=== PATIENT | male | born 1970 | race Caucasian/White ===

== ENCOUNTER 2018-05-09 16:47 | Emergency (ER) | payer OTHER ==
[~2018-05-09] VITALS: Ht 170.2 cm; Wt 92.5 kg
[2018-05-09] MEDS ORDERED: TESSALON PERLE100 MG PO (16:58)
[2018-05-09] MEDS ORDERED: PROAIR (16:58)
[2018-05-09] MEDS ORDERED: DOXYCYCLINE 10100 MG PO (16:58)
[2018-05-09] MEDS ORDERED: ATORVASTATIN CA40 MG PO (16:59)
[2018-05-09] MEDS ORDERED: LAMICTAL XR200 MG PO (17:00)
[2018-05-09] MEDS ORDERED: XANAX1 MG PO (17:00)
[2018-05-09] MEDS ORDERED: TRAZODONE HCL100 MG PO (17:00)
[2018-05-09] MEDS ORDERED: EFFEXOR XR75 MG PO (17:01)
[2018-05-09] MEDS ORDERED: LITHIUM CARBON300 M3 PO (17:01)
[2018-05-09 17:55] LABS: ABSOLUTE BASOPHILS 0.1 thou/uL (0.0-0.2); ABSOLUTE EOSINOPHILS 0.2 thou/uL (0.0-0.7); ABSOLUTE LYMPHOCYTES 3.8 thou/uL (0.8-5.3); ABSOLUTE MONOCYTES 1.4 thou/uL (0.0-1.2); ABSOLUTE NEUTROPHILS 9.3 thou/uL (1.6-8.1); BASOPHILS 0.8 %; HEMATOCRIT 46.9 % (42.0-52.0); HEMOGLOBIN 15.9 gm/dL (14.0-18.0); LYMPHOCYTES 25.7 %; MCH 31.2 pg (26.0-34.0); MCHC 33.8 g/dL (28.0-37.0); MCV 92.5 fL (80.0-100.0); MONOCYTES 9.2 %; NUCLEATED RBCS 0 /100WBC; PLATELET COUNT* 260 thou/uL (150-400); POLYS 63.3 %; RBC 5.08 mil/uL (4.50-6.00); RDW-CV 13.3 % (10.5-14.5); WBC 14.8 thou/uL (4.0-11.0)
[2018-05-09 18:03] LABS: ANION GAP 11 mmol/L (7-16); BUN 9 mg/dL (7-18); CALCIUM 8.7 mg/dL (8.5-10.1); CHLORIDE 105 mmol/L (98-107); CO2 23 mmol/L (21-32); CREATININE 0.8 mg/dL (0.6-1.3); GLUCOSE 87 mg/dL (70-99); POTASSIUM 4.1 mmol/L (3.5-5.1); SODIUM 139 mmol/L (136-145)
[2018-05-09 18:10] LABS: ALBUMIN 3.3 g/dL (3.4-5.0); ALKALINE PHOSPHATASE 111 U/L (46-116); SGOT 30 U/L (15-37); SGPT 49 U/L (30-65); TOTAL BILIRUBIN 0.3 mg/dL (<0.1-1.0); TOTAL PROTEIN 6.7 g/dL (6.4-8.2); TROPONIN-I LEVEL <0.06 ng/mL (<0.06)
[2018-05-09 18:41] LABS: INFLUENZA A ANTIGEN None Detected (None Detect); INFLUENZA B ANTIGEN None Detected (None Detect)
[2018-05-09 18:49] VITALS: BP 128/82
--- NOTE | 2018-05-10 13:46 | EKG ---
[place] [address] ELECTROCARDIOGRAM REPORT Name: EMILIA BEASLEY [id number] Admission: 05/09/18 Attend Phys: Discharge: 05/09/18 Date of : 72 Report #: [id number] THIS REPORT FOR: //name// [facility] ED Test Date: 2018-05-09 Test Time: 17:43:04 Pat Name: EMILIA BEASLEY Department: Room: Gender: M [employer]: [place] : 1970 Requested By: Darshana Jansen Order Number: [id number] MD: Paulo Pearson Measurements Intervals [place] Rate: 74 P: 40 RI: 147 QRS: 62 QRSD: 89 T: 46 QT: 405 QTc: 450 Interpretive Statements Sinus rhythm Compared to ECG 05/30/2009 07:38:46 Sinus arrhythmia no longer present Electronically Signed On 05-10-2018 13:46:28 [employer] by Paulo Pearson [email or web address] <ELECTRONICALLY SIGNED> By: Paulo Pearson MD, [facility] 05/10/18 1346 [id number] Paulo Pearson MD, FACC /EPI
== END 2018-05-09 18:50 | disposition home or self-care (01) ==
LOC: M.ERS 16:47
PROVIDERS: Nurse Practitioner Family
DX: J18.9 Pneumonia, unspecified organism (principal); F31.9 Bipolar disorder, unspecified; F17.210 Nicotine dependence, cigarettes, uncomplicated